=== PATIENT | male | born 1985 | race Caucasian/White ===

== ENCOUNTER 2018-10-20 02:23 | Inpatient (IN) | payer OTHER ==
[~2018-10-20] VITALS: Ht 182.9 cm; Wt 76.9 kg
[2018-10-20 02:50] LABS: BASO # 0.1 x10^3/uL (0.0-0.2); BASO % 0 % (0-3); EOS # 0.2 x10^3/uL (0.0-0.7); EOS % 1 % (0-3); HEMATOCRIT 41.4 % (39.0-53.0); HEMOGLOBIN 13.5 g/dL (13.0-17.5); LYMPH # 1.3 x10^3/uL (1.0-4.8); LYMPH % 9 % (24-48); MEAN CORPUSCULAR HEMOGLOBIN 29 pg (25-35); MEAN CORPUSCULAR HGB CONC 33 g/dL (31-37); MEAN CORPUSCULAR VOLUME 88 fL (79-100); MONO # 1.1 x10^3/uL (0.0-1.1); MONO % 8 % (0-9); NEUT # 11.8 x10^3uL (1.8-7.7); NEUT % 82 % (31-73); PLATELET COUNT 304 x10^3/uL (140-400); RED CELL DISTRIBUTION WIDTH 12.9 % (11.5-14.5); WHITE BLOOD COUNT 14.5 x10^3/uL (4.0-11.0)
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
[2018-10-20 02:58] LABS: CALCIUM 8.7 mg/dL (8.5-10.1); CREATININE 1.2 mg/dL (0.7-1.3); GFR 69.3; POTASSIUM 3.5 mmol/L (3.5-5.1)
[2018-10-20] MEDS ORDERED: TETANUS AND DIPHTHERIA TOX/PF 0.5 ML DISP.SYRIN. VAX IM ONE (03:00)
[2018-10-20] MEDS ORDERED: IV NORMAL SALINE 1000ML BAG 1,000 ML IV ONE (03:00)
[2018-10-20 03:04] LABS: ALBUMIN 3.9 g/dL (3.4-5.0); ALBUMIN/GLOBULIN RATIO 1.1 (1.0-1.7); TOTAL BILIRUBIN 0.5 mg/dL (0.2-1.0); TOTAL PROTEIN 7.3 g/dL (6.4-8.2)
[2018-10-20] MEDS ORDERED: LIDOCAINE 1% Multi-Dose 20 ML VIAL. INJ ONE (03:30)
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
[2018-10-20] MEDS ORDERED: ONDANSETRON PF 4 MG/2 ML VIAL. IV PRN ×2 (04:00→08:45)
[2018-10-20] MEDS: IV NORMAL SALINE 1000ML BAG 1,000 ML IV SCH ×3 (05:48→13:42)
[2018-10-20 05:56] VITALS: BP 109/72
[2018-10-20 07:00] VITALS: BP 115/69
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
[2018-10-20] MEDS ORDERED: ACETAMINOPHEN 500 MG TABLET PO PRN (08:45)
[2018-10-20] MEDS ORDERED: ACETAMINOPHEN/CODEINE 300/30MG TABLET. PO PRN (08:45)
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
[2018-10-20 11:00] VITALS: BP 119/60
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
[2018-10-20] MEDS: CELECOXIB 100 MG CAPSULE. PO SCH ×2 (12:26→21:32)
[2018-10-20] MEDS: fentaNYL PF VIAL 100 MCG/2 ML VIAL IV PRN ×2 (12:27→19:34)
[2018-10-20] MEDS: NICOTINE 21MG PATCH. TD SCH (13:42)
[2018-10-20 15:00] VITALS: BP 111/61
--- NOTE | 2018-10-20 16:06 | NUR ---
SW following for discharge planning. Discussed with RN, pt very sleepy today. Rosy ([facility]) working with pt regarding self pay status. SW will continue to follow for any discharge planning needs.
[2018-10-20] MEDS: oxyCODONE/APAP 5/325 1 TAB TABLET PO PRN (17:03)
[2018-10-20 19:00] VITALS: BP 122/70
[2018-10-20 23:00] VITALS: BP 106/73
[2018-10-21] MEDS: oxyCODONE/APAP 5/325 1 TAB TABLET PO PRN ×3 (00:35→12:41)
[2018-10-21 02:34] VITALS: BP 137/84
[2018-10-21] MEDS: fentaNYL PF VIAL 100 MCG/2 ML VIAL IV PRN (03:33)
[2018-10-21 07:00] VITALS: BP 126/77
[2018-10-21] MEDS: CELECOXIB 100 MG CAPSULE. PO SCH (08:08)
[2018-10-21] MEDS: NICOTINE 21MG PATCH. TD SCH (08:08)
[2018-10-21 11:00] VITALS: BP 119/71
[2018-10-21 11:36] LABS: BASO # 0.1 x10^3/uL (0.0-0.2); BASO % 0 % (0-3); EOS # 0.1 x10^3/uL (0.0-0.7); EOS % 1 % (0-3); HEMATOCRIT 37.1 % (39.0-53.0); HEMOGLOBIN 12.1 g/dL (13.0-17.5); LYMPH # 0.8 x10^3/uL (1.0-4.8); LYMPH % 4 % (24-48); MEAN CORPUSCULAR HEMOGLOBIN 29 pg (25-35); MEAN CORPUSCULAR HGB CONC 33 g/dL (31-37); MEAN CORPUSCULAR VOLUME 88 fL (79-100); MONO # 1.6 x10^3/uL (0.0-1.1); MONO % 9 % (0-9); NEUT # 16.5 x10^3uL (1.8-7.7); NEUT % 86 % (31-73); PLATELET COUNT 271 x10^3/uL (140-400); RED BLOOD COUNT 4.23 x10^6/uL (4.30-5.70); RED CELL DISTRIBUTION WIDTH 13.2 % (11.5-14.5); WHITE BLOOD COUNT 19.1 x10^3/uL (4.0-11.0)
[2018-10-21] MEDS ORDERED: OXYC1TAB15 PO (12:08)
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
[2018-10-21 12:16] LABS: % BANDS 16 % (0-9); % BASOS 1 % (0-3); % EOS 1 % (0-5); % LYMPHS 3 % (24-48); % MONOS 10 % (0-10); % MYELOS 1 % (0-0); % SEGS 68 % (35-66)
[2018-10-21 12:18] LABS: PLT ESTIMATE ADEQUATE (ADEQUATE)
--- NOTE | 2018-10-21 13:09 | NUR ---
SW following. Discussed with RN, pt discharging home today with self care. SW met with pt to give self pay resource packet. Pt denied any other SW needs. RN notified.
--- NOTE | 2018-10-21 13:58 | NUR ---
pt is discharged home with self care at 1300 via wheelchair via [facility]EMAL[facility] Flores. pt is in stable condition. pt has all belongings with him. pt received discharge instructions and prescriptions and stated he had no further questions for me. supplies given to pt for dressing changes until he sees for staple removal. resource information given to pt to help find a pcp and for prescription and any other help pt may need.
== END 2018-10-21 13:00 | disposition home or self-care (01) | DRG 552 ==
LOC: EEVIPCON 02:23 → ER 02:23 → 4 NORTH 03:56
PROVIDERS: ADMIT Internal Medicine; ATTEND Internal Medicine
DX: S12.500A Unspecified displaced fracture of sixth cervical vertebra, initial encounter for closed fracture (principal); S09.90XA Unspecified injury of head, initial encounter; F17.210 Nicotine dependence, cigarettes, uncomplicated; S61.512A Laceration without foreign body of left wrist, initial encounter; Y08.89XA Assault by other specified means, initial encounter; Y93.89 Activity, other specified; Y92.89 Other specified places as the place of occurrence of the external cause; Y99.8 Other external cause status
CPT/HCPCS: 12002; 36415; 70450; 72125; 80053; 85007; 85025; 90471; 90714; 96360; G0480; J3010; J7030; 99285-25

== ENCOUNTER 2021-01-02 19:06 | Emergency (ER) | payer SELFPAY ==
[~2021-01-02] VITALS: Ht 185.4 cm; Wt 79.5 kg
[~2021-01-02 19:06] MED LIST: OXYC1TAB15 PO
[2021-01-02 21:20] VITALS: BP 100/62
[2021-01-03] MEDS ORDERED: PROPARACAINE 0.5% OPHTH SOLUTION 15ML BOTTLE. OU ONE (00:30)
[2021-01-03] MEDS ORDERED: FLUORESCEIN OPHTH TEST STRIP. OU ONE (00:30)
--- NOTE | 2021-01-03 01:16 | RAD ---
EXAMINATION: CT MAXILLOFACIAL WITHOUT CONTRAST CLINICAL HISTORY: Eye injury pain vision changes Technique: Spiral high resolution axial unenhanced images were obtained through the facial bones with sagittal and coronal planar reconstructions. CT Dose Reduction Employed: One or more of the following individualized dose reduction techniques wer e utilized for this examination: 1. Automated exposure control 2. Adjustment of the mA and/or kV ac cording to patient size 3. Use of iterative reconstruction technique. COMPARISON: None FINDINGS: Soft Tissues: Right periorbital soft tissue edema extending across the bridge of nose. No evidence of organized soft tissue collection. Facial Bones: Minimally depressed age-indeterminate nasal bone fracture across the bridge of the nose . Mild to moderate nasal septal deviation to the right. Orbits: No evidence of acute orbital fracture. Globes are intact. Soft tissue planes of the orbits ma intained. Paranasal Sinuses: No significant sinus disease. Foreign Bodies: No evidence of radiopaque foreign body. Other: Dental caries in the maxillary molars. IMPRESSION: Age-indeterminate nasal bone fracture as described. Right periorbital soft tissue edema without evidence of acute orbital fracture. Electronically signed by: Florencio Hoyt DO (01/03/2021 1:13 AM) LUIS ALBERTO
[2021-01-03 01:20] LABS: BASO # 0.1 x10^3/uL (0.0-0.2); BASO % 1 % (0-3); EOS # 0.4 x10^3/uL (0.0-0.7); EOS % 4 % (0-3); HEMOGLOBIN 13.4 g/dL (13.0-17.5); LYMPH # 1.6 x10^3/uL (1.0-4.8); LYMPH % 19 % (24-48); MEAN CORPUSCULAR HEMOGLOBIN 29 pg (25-35); MEAN CORPUSCULAR HGB CONC 34 g/dL (31-37); MEAN CORPUSCULAR VOLUME 87 fL (79-100); MONO % 12 % (0-9); NEUT # 5.5 x10^3/uL (1.8-7.7); NEUT % 64 % (31-73); PLATELET COUNT 263 x10^3/uL (140-400); RED BLOOD COUNT 4.61 x10^6/uL (4.30-5.70); RED CELL DISTRIBUTION WIDTH 13.8 % (11.5-14.5); WHITE BLOOD COUNT 8.5 x10^3/uL (4.0-11.0)
[2021-01-03 01:31] LABS: CALCIUM 8.7 mg/dL (8.5-10.1); CREATININE 0.9 mg/dL (0.7-1.3); GFR 95.5; POTASSIUM 3.9 mmol/L (3.5-5.1)
[2021-01-03 01:37] LABS: ALBUMIN/GLOBULIN RATIO 1.4 (1.0-1.7); TOTAL BILIRUBIN 1.2 mg/dL (0.2-1.0); TOTAL PROTEIN 6.9 g/dL (6.4-8.2)
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
== END 2021-01-03 04:51 | disposition short-term general hospital (02) ==
LOC: ER 19:06
DX: S05.91XA Unspecified injury of right eye and orbit, initial encounter (principal); F31.9 Bipolar disorder, unspecified; F17.200 Nicotine dependence, unspecified, uncomplicated; F90.9 Attention-deficit hyperactivity disorder, unspecified type; H53.8 Other visual disturbances; Y04.2XXA Assault by strike against or bumped into by another person, initial encounter; Y93.89 Activity, other specified; Y92.89 Other specified places as the place of occurrence of the external cause; Y99.8 Other external cause status
CPT/HCPCS: 36415; 70486; 80053; 85025; 99285-25